=== PATIENT | female | born 1985 | race Two or more races ===

== ENCOUNTER 2018-07-04 13:01 | Outpatient (CLI) | payer OTHER | END 2018-07-04 13:12 | disposition home or self-care (01) | LOC: RAD 13:01 | DX: M25.562 Pain in left knee (principal); M25.561 Pain in right knee ==

== ENCOUNTER 2023-03-29 15:21 | Emergency (ER) | payer OTHER ==
[~2023-03-29] VITALS: Ht 165.1 cm; Wt 62.6 kg
[2023-03-29 17:41] LABS: HEMATOCRIT 42.1 % (36.0-45.00); HEMOGLOBIN 14.2 g/dL (12.0-15.00); MEAN CELL VOLUME 86.2 fL (80.00-100.00); MEAN CORPUSCULAR HEMOGLOBIN 29.1 pg (27.00-32.0); MEAN CORPUSCULAR HGB CONC 33.7 g/dl (32.0-36.0); PLATELET COUNT 227 K/uL (150-450); RED BLOOD COUNT 4.88 M/uL (4.00-6.00); RED CELL DISTRIBUTION WIDTH 13.4 % (11.5-14.5)
[2023-03-29 18:07] LABS: INR 1.09; PARTIAL THROMBOPLASTIN TIME 28.3 SECONDS (22.0-34.0); PROTHROMBIN TIME 11.4 SECONDS (9.0-11.5)
[2023-03-29 18:25] LABS: ALKALINE PHOSPHATASE 66 U/L (50-136); ALT/SGPT 19 U/L (12-78); ANION GAP 11 (10.0-20.0); AST/SGOT 20 U/L (15-37); BILIRUBIN TOTAL 0.47 mg/dL (0.3-1.2); BLOOD UREA NITROGEN 17 mg/dL (7-18); BUN CREA RATIO 18 (7.0-25.0); CALCIUM 9.2 mg/dL (8.5-10.1); CARBON DIOXIDE 25 mEq/L (21-32); CHLORIDE 106 mmol/L (98-107); CREATININE SERUM 0.97 mg/dL (0.55-1.02); GFR 63.93; GLOBULINA 4.5 G/DL (2.4-3.5); GLUCOSE FASTING 93 mg/dL (65-100); HCG QUANTITATIVE < 1 mUI/mL (1-3); OSMOLALITY SERUM 277 MOSM/KG (275-295); POTASSIUM 3.68 mEq/L (3.5-5.1); SODIUM 138 mmol/L (136-145); TOTAL PROTEIN 8.5 gm/dL (6.4-8.2)
[2023-03-29] MEDS ORDERED: DICLOFENAC SODI75 MG PO (19:00)
[2023-03-29 19:42] LABS: PH,URINE 6.5 (5.0-8.0); URINE APPEARANCE Cloudy; URINE BILIRRUBIN Negative (NEGATIVE); URINE BLOOD Negative; URINE COLOR Yellow; URINE GLUCOSE Negative (NEGATIVE); URINE LEUKOCYTE Small; URINE NITRATE Positive; URINE PROTEIN Negative (NEGATIVE); URINE UROBILINOGEN 0.2 E.U./dl
[2023-03-29 19:46] LABS: URINE EPITHELIAL CELLS 54.8 uL (0.0-38.8); URINE RBC 13.5 uL (0.0-20.8); URINE WBC 49.6 uL (0.0-23.2)
[2023-03-29 20:35] LABS: URINE BACTERIA > 9821.5 uL (0.0-1933)
== END 2023-03-29 19:37 | disposition home or self-care (01) ==
LOC: ER 15:22
PROVIDERS: General Practice
DX: N83.201 Unspecified ovarian cyst, right side (principal); R10.2 Pelvic and perineal pain; Z88.2 Allergy status to sulfonamides